=== PATIENT | male | born 1990 | race Caucasian/White ===

== ENCOUNTER 2020-08-30 21:00 | Emergency (ER) | payer OTHER ==
[~2020-08-30] VITALS: Ht 180.3 cm; Wt 93.9 kg
[2020-08-31] MEDS ORDERED: LIDOCAINE 2% MDV 20ML VIAL SC ONE (00:35)
[2020-08-31] MEDS ORDERED: NEOSPORIN OINT 0.9 GM PKT TOP ONE (01:00)
[2020-08-31 01:56] VITALS: BP 120/76
== END 2020-08-31 01:58 | disposition home or self-care (01) ==
LOC: M ED 21:00
DX: S60.456A Superficial foreign body of right little finger, initial encounter (principal); W45.8XXA Other foreign body or object entering through skin, initial encounter; Y92.828 Other wilderness area as the place of occurrence of the external cause; Y93.89 Activity, other specified; Y99.9 Unspecified external cause status